=== PATIENT | female | born 1980 | race American Indian/Alaskan Native ===

== ENCOUNTER 2017-12-03 21:20 | Emergency (ER) | payer MEDICAID ==
[2017-12-03] MEDS ORDERED: APRESOLINE PO ONE (22:17)
--- NOTE | 2017-12-03 23:14 | XRay Report ---
FINAL REPORT EXAM: XR ANKLE 3+V RT HISTORY: pain and redness to R ankle TECHNIQUE: Frontal, lateral, mortise views right ankle Comparison: None FINDINGS: There is no evidence of fracture or subluxation. The mortise joint is maintained. There is soft tissue swelling at the level of the ankle. There appears to be ossification of the interosseous ligament in the region of the midshaft of the tibia. IMPRESSION: 1. No evidence of fracture or subluxation. 2. Soft tissue swelling at the level of the ankle.
[2017-12-03] MEDS ORDERED: NORCO 5/325 ONE (23:27)
[2017-12-03] MEDS ORDERED: NORCO 5/325 PO ONE (23:28)
--- NOTE | 2017-12-04 00:17 | Emergency Department Report ---
ED Extremity Problem HPI - General Chief complaint: Extremity Problem,Nontraumatic Stated complaint: RT ANKLE PAIN Time Seen by Provider: 12/04/17 00:07 Source: patient Mode of arrival: Ambulatory Limitations: No Limitations - History of Present Illness Initial comments: 37-year-old -French female presents to the emergency room for pain and redness to the left ankle. Patient denies any recent injury. She reports that every step that she takes hurts really bad. She also reports that it feels like it's burning to her left ankle. Patient is noted to have elevated blood pressure in triage of 173/114. Patient does admit to having intermittent headaches. She reports she has not taken any antihypertensive medicine this year. Patient is allergic to faustino inhibitors. She reports that the nifedipine made her feel worse. Therefore she is not taking any medications at this time. Patient did report taking Tylenol intermittently for pain. MD Complaint: extremity pain, extremity swelling -: days(s) (5) Location: left, lower extremity (ankle) -: Yes arthralgia Severity scale (0 -10): 4 Quality: burning, constant Improves with: cold therapy, rest Worsens with: weight bearing, walking - Related Data Previous Rx's Medication Instructions Recorded Last Taken Type Ciprofloxacin HCl [Ciprofloxacin 500 mg PO Q12HR #6 tab 12/08/16 Unknown Rx TAB] NIFEdipine XL [Procardia Xl] 90 mg PO QDAY #30 tablet 12/08/16 Unknown Rx Hydralazine HCl 50 mg PO BID #60 tablet 12/04/17 Unknown Rx Ibuprofen [Motrin 600 MG tab] 600 mg PO Q8H PRN #15 tablet 12/04/17 Unknown Rx hydroCHLOROthiazide [HCTZ] 25 mg PO QDAY #30 tablet 12/04/17 Unknown Rx Allergies Allergy/AdvReac Type Severity Reaction Status Date / Time lisinopril Allergy Swelling Verified 12/05/16 17:59 ED Review of Systems ROS: Stated complaint: RT ANKLE PAIN Other details as noted in HPI Constitutional: denies: chills, fever Eyes: denies: eye pain, eye discharge, vision change ENT: denies: ear pain, throat pain Respiratory: denies: cough, shortness of breath, wheezing Cardiovascular: denies: chest pain, palpitations Endocrine: no symptoms reported Gastrointestinal: denies: abdominal pain, nausea, diarrhea Genitourinary: denies: urgency, dysuria, discharge Musculoskeletal: joint swelling, arthralgia Skin: denies: rash, lesions Neurological: headache Psychiatric: denies: anxiety, depression Hematological/Lymphatic: denies: easy bleeding, easy bruising ED Past Medical Hx - Past Medical History Previous Medical History?: Yes Hx Hypertension: Yes Hx Congestive Heart Failure: No Hx Diabetes: No Hx Asthma: No Hx COPD: No Additional medical history: obesity - Surgical History Past Surgical History?: Yes Additional Surgical History: - Social History Smoking Status: Never Smoker Substance Use Type: None - Medications Home Medications: Home Medications Medication Instructions Recorded Confirmed Last Taken Type Ciprofloxacin HCl [Ciprofloxacin 500 mg PO Q12HR #6 tab 12/08/16 Unknown Rx TAB] NIFEdipine XL [Procardia Xl] 90 mg PO QDAY #30 tablet 12/08/16 Unknown Rx Hydralazine HCl 50 mg PO BID #60 tablet 12/04/17 Unknown Rx Ibuprofen [Motrin 600 MG tab] 600 mg PO Q8H PRN #15 tablet 12/04/17 Unknown Rx hydroCHLOROthiazide [HCTZ] 25 mg PO QDAY #30 tablet 12/04/17 Unknown Rx ED Physical Exam - General Limitations: No Limitations General appearance: alert, in no apparent distress - Head Head exam: Present: atraumatic, normocephalic - Eye Eye exam: Present: EOMI - ENT ENT exam: Present: mucous membranes moist - Neck Neck exam: Present: full ROM - Respiratory Respiratory exam: Present: normal lung sounds bilaterally. Absent: respiratory distress - Cardiovascular Cardiovascular Exam: Present: regular rate, normal rhythm. Absent: systolic murmur, diastolic murmur, rubs, gallop - Expanded Lower Extremity Exam Left Hip exam: Present: full ROM Upper Leg exam: Present: normal inspection Knee exam: Present: normal inspection Ankle exam: Present: full ROM, tenderness, swelling. Absent: abrasion, ecchymosis, deformity, erythema Foot/Toe exam: Present: full ROM. Absent: tenderness (tibialis anterior ligament tenderness), swelling Neuro vascular tendon exam: Present: no vascular compromise - Neurological Exam Neurological exam: Present: alert, oriented X3 - Psychiatric Psychiatric exam: Present: normal affect, normal mood - Skin Skin exam: Present: warm, dry, intact, normal color. Absent: rash ED Course Vital Signs 12/03/17 12/03/17 12/03/17 21:42 22:09 22:38 Temperature 98.5 F 98.5 F Pulse Rate 85 88 88 Respiratory 16 16 Rate Blood Pressure 173/114 173/114 173/114 Blood Pressure [Left] Blood Pressure [Right] O2 Sat by Pulse 100 100 Oximetry 12/03/17 12/04/17 12/04/17 23:29 01:19 02:40 Temperature Pulse Rate 74 77 75 Respiratory 17 17 17 Rate Blood Pressure Blood Pressure 169/103 165/103 [Left] Blood Pressure 164/112 [Right] O2 Sat by Pulse 100 99 100 Oximetry ED Medical Decision Making - Radiology Data Radiology results: report reviewed, image reviewed FINAL REPORT EXAM: XR ANKLE 3+V RT HISTORY: pain and redness to R ankle TECHNIQUE: Frontal, lateral, mortise views right ankle Comparison: None FINDINGS: There is no evidence of fracture or subluxation. The mortise joint is maintained. There is soft tissue swelling at the level of the ankle. There appears to be ossification of the interosseous ligament in the region of the midshaft of the tibia. IMPRESSION: 1. No evidence of fracture or subluxation. 2. Soft tissue swelling at the level of the ankle. Transcribed By: ED Dictated By: PARMJIT ELLIS MD Electronically Authenticated By: PARMJIT ELLIS MD Signed Date/Time: 12/03/17 3714 - Medical Decision Making Patient has been evaluated by this provider fast track. Patient has been given Erwin as well as ibuprofen 800 mg for pain management. Patient has been given hydralazine 50 mg by mouth for hypertension. Patient has had a Faustino wrap and left ankle stirrup for pain instability. Referral for patient to follow up in orthopedics clinic. Referral for [facility] for primary care for management of hypertension. Patient will be discharged on hydralazine 50 mg twice a day in hydrochlorothiazide 25 mg daily. Patient blood pressure continued to be elevated patient was given IV labetalol 10 mg. Blood pressure was rechecked which had not moved with decreased at all. Patient was then given another labetalol 20 mg IV as well as nitroglycerin 0.4 mg sublingual. Blood pressure remains the same. Patient is still asymptomatic. We'll discharge patient on hydralazine 50 mg twice a day hydrochlorothiazide 25 mg daily and referral to [facility]. Critical care attestation.: If time is entered above; I have spent that time in minutes in the direct care of this critically ill patient, excluding procedure time. ED Disposition Clinical Impression: Uncontrolled hypertension Ankle sprain Qualifiers: Encounter type: initial encounter Involved ligament of ankle: anterior talofibular ligament Laterality: left Qualified Code(s): S93.492A - Sprain of other ligament of left ankle, initial encounter Disposition: TO HOME OR SELFCARE Is pt being admited?: No Does the pt Need Aspirin: No Condition: Stable Instructions: Hypertension (ED) Additional Instructions: Please take blood pressure medication as prescribed. Pain medication as needed. He is very important for you to follow-up with [facility] for chronic hypertension that is uncontrolled. As this can increase her chances of coming down with a stroke or heart attack. If his symptoms persist or gets worse please follow up with orthopedic. I have also listed [facility] information. Prescriptions: Hydralazine HCl 50 mg PO BID #60 tablet hydroCHLOROthiazide [HCTZ] 25 mg PO QDAY #30 tablet Ibuprofen [Motrin 600 MG tab] 600 mg PO Q8H PRN #15 tablet PRN Reason: Pain Referrals: PRIMARY MD KEISHA [Primary Care Provider] - 3-5 Days ELVIRA GUILLEN MD [Staff Physician] - 3-5 Days [facility] [Provider Group] - 3-5 Days Forms: Work/School Release Form(ED)
[2017-12-04] MEDS ORDERED: MOTRIN ONE (00:24)
[2017-12-04] MEDS ORDERED: MOTRIN PO ONE (00:25)
[2017-12-04] MEDS ORDERED: NORMODYNE IV ONE ×2 (01:22→03:07)
[2017-12-04] MEDS ORDERED: NITROSTAT SL ONE (03:07)
[2017-12-04 04:30] VITALS: BP 175/103
== END 2017-12-04 04:24 | disposition home or self-care (01) ==
LOC: ED 21:20
DX: S93.492A Sprain of other ligament of left ankle, initial encounter (principal); I10 Essential (primary) hypertension; Z88.8 Allergy status to other drugs, medicaments and biological substances; X58.XXXA Exposure to other specified factors, initial encounter; Y93.89 Activity, other specified; Y92.89 Other specified places as the place of occurrence of the external cause; Y99.8 Other external cause status
CPT/HCPCS: 96374; 96376

== ENCOUNTER 2019-04-20 15:38 | Emergency (ER) | payer MEDICAID ==
--- NOTE | 2019-04-20 17:21 | Emergency Department Report ---
Blank Doc - Documentation Documentation: 38 Y/O FEMALE PRESENTS C/O 2 WEEK H/O UPPER ABDOMINAL PAIN ASSOCIATED WITH NA USEA AND VOMITING. NO DIARRHEA. NO TRAVEL. ALSO HAS THROBBING HEADACHE FOR THE LAST 1-2 WEEKS TOO. BP 195/123 DURING SCREENING. The patient was seen in triage for ABOVE Labs/imaging ordered to evaluate for a cause of this complaint. Vital signs reviewed, patient awake and alert in NAD.
[2019-04-20 18:17] LABS: Hematocrit 40.3 % (30.3-42.9); Hemoglobin 13.4 gm/dl (10.1-14.3); Mean Corpuscular HGB Conc 33 % (30-34); Mean Corpuscular Volume 87 fl (79-97); Platelet Count 391 K/mm3 (140-440); Red Blood Count 4.61 M/mm3 (3.65-5.03); Red Cell Distribution Width 15.8 % (13.2-15.2)
[2019-04-20 18:19] LABS: Eosinophils % (Auto) 1.1 % (0.0-4.3); Lymphocytes % (Auto) 32.3 % (13.4-35.0); Monocytes % (Auto) 8.8 % (0.0-7.3)
[2019-04-20 18:20] LABS: Basophils # (Auto) 0.1 K/mm3 (0.0-0.1); Eosinophils # (Auto) 0.1 K/mm3 (0.0-0.4); Lymphocytes # (Auto) 1.7 K/mm3 (1.2-5.4); Monocytes # (Auto) 0.5 K/mm3 (0.0-0.8)
[2019-04-20 18:29] LABS: Alanine Aminotransferase 9 units/L (7-56); Albumin 3.9 g/dL (3.9-5); BUN/Creatinine Ratio 15; Blood Urea Nitrogen 12 mg/dL (7-17); Hemolysis Index 13
[2019-04-20 18:42] LABS: Bilirubin,Direct < 0.2 mg/dL (0-0.2)
[2019-04-20] MEDS ORDERED: ACETAMINOPHEN 325 MG TAB PO ONE (18:42)
--- NOTE | 2019-04-20 18:52 | Emergency Department Report ---
HPI - General Chief Complaint: Abdominal Pain Time Seen by Provider: 04/20/19 18:19 - HPI HPI: 38-year-old -Greek female presents to the emergency department with a complaint of upper abdominal pain, nausea, vomiting, left-sided headache and unc ontrolled blood pressure. Overall the abdominal pain has been going on for the past 2 weeks but normally it occurs after the patient eats something. Today she woke up with the pain and it seems to worsen when she ambulates. She woke up with this headache as well. It is left-sided, throbbing, 8 out of 10 in intensity. She denies any vision change, slurred speech or any other neurological deficits. She has not taken anything today for her symptoms prior to arrival. She does have a history of hypertension but has been out of her medications for the past 6 months. She is an occasional tobacco smoker and denies any illicit drug use. She has a primary care physician but cannot remember the name and has not seen them" in a while." No recent travel or sick contacts at home. ED Past Medical Hx - Past Medical History Hx Hypertension: Yes Hx Congestive Heart Failure: No Hx Diabetes: No Hx Asthma: No Hx COPD: No Additional medical history: obesity - Surgical History Past Surgical History?: Yes Additional Surgical History: - Social History Smoking Status: Never Smoker Substance Use Type: None - Medications Home Medications: Home Medications Medication Instructions Recorded Confirmed Last Taken Type Ciprofloxacin HCl [Ciprofloxacin 500 mg PO Q12HR #6 tab 12/08/16 Unknown Rx TAB] NIFEdipine XL [Procardia Xl] 90 mg PO QDAY #30 tablet 12/08/16 Unknown Rx Hydralazine HCl 50 mg PO BID #60 tablet 12/04/17 Unknown Rx Ibuprofen [Motrin 600 MG tab] 600 mg PO Q8H PRN #15 tablet 12/04/17 Unknown Rx hydroCHLOROthiazide [HCTZ] 25 mg PO QDAY #30 tablet 12/04/17 Unknown Rx Ondansetron [Zofran Odt] 4 mg PO Q8HR PRN #15 tab.rapdis 04/21/19 Unknown Rx amLODIPine 10 mg PO DAILY #30 tab 04/21/19 Unknown Rx ED Review of Systems ROS: Stated complaint: STOMACH PAIN/HEAD PAIN Other details as noted in HPI Comment: All other systems reviewed and negative Constitutional: denies: chills, fever Eyes: denies: eye pain, vision change ENT: denies: ear pain, throat pain Respiratory: denies: cough, shortness of breath Cardiovascular: denies: chest pain, palpitations Gastrointestinal: abdominal pain, nausea, vomiting Genitourinary: denies: dysuria, discharge Musculoskeletal: denies: back pain, arthralgia Skin: denies: rash, lesions Neurological: headache. denies: weakness, numbness, paresthesias Physical Exam - Physical Exam Vital Signs: Vital Signs 04/20/19 04/20/19 16:12 17:20 Temperature 98.6 F Pulse Rate 87 Respiratory 18 Rate Blood Pressure 204/137 Blood Pressure 195/123 [Right] O2 Sat by Pulse 100 Oximetry Physical Exam: GENERAL: The patient is well-developed well-nourished. HEENT: Normocephalic. Atraumatic. Patient has moist mucous membranes. EYES: Extraocular motions are intact. Pupils equal and reactive to light bilaterally. No nystagmus. NECK: Supple. Trachea is midline CHEST/LUNGS: Clear to auscultation. There is no respiratory distress noted. HEART/CARDIOVASCULAR: Regular. There is no tachycardia. ABDOMEN: Abdomen is soft. There is some right upper quadrant and epigastric tenderness to palpation. patient has normal bowel sounds. Obese habitus. SKIN: Skin is warm and dry. NEURO: The patient is awake, alert, and oriented. The patient is cooperative. The patient has no focal neurologic deficits. Normal speech. Cranial nerves II through XII grossly intact. MUSCULOSKELETAL: There is no tenderness or deformity. There is no limitation range of motion. There is no evidence of acute injury. ED Course Vital Signs 04/20/19 04/20/19 16:12 17:20 Temperature 98.6 F Pulse Rate 87 Respiratory 18 Rate Blood Pressure 204/137 Blood Pressure 195/123 [Right] O2 Sat by Pulse 100 Oximetry ED Medical Decision Making - Lab Data Result diagrams: 04/20/19 17:36 04/20/19 17:36 - Radiology Data Radiology results: report reviewed, image reviewed interpreted by me: Abdominal x-ray shows nonspecific nonobstructive bowel gas CT head/brain wo con INDICATION / CLINICAL INFORMATION: 38 years Female; headache. TECHNIQUE: Routine CT head without contrast. All CT scans at this location are performed using CT dose reduction for ALARA by means of automated exposure control. COMPARISON: None. FINDINGS: BRAIN / INTRACRANIAL CONTENTS: No acute hemorrhage, mass effect, midline shift, hydrocephalus, or acute, large territorial infarct. No chronic infarct or atrophy appreciated. No significant white matter abnormality. CRANIOCERVICAL JUNCTION: No significant abnormality. ORBITS: No significant abnormality of visualized orbits. SINUSES / MASTOIDS: No significant abnormality the visualized paranasal sinuses or mastoid air cells. ADDITIONAL FINDINGS: None. IMPRESSION: 1. No focal mass, hemorrhage, hydrocephalus, or acute, large territorial infarct. ULTRASOUND ABDOMEN, LIMITED (RIGHT UPPER QUADRANT), 04/20/2019 INDICATION: Right upper quadrant pain. COMPARISON: No prior abdominal imaging is available for comparison FINDINGS: Pancreas: Visualized portion shows no significant abnormality. Liver: The liver appears normal in size and echogenicity. Gallbladder: The gallbladder contains a single large calcified gallstone estimated to measure 3.5 cm. There is no evidence of gallbladder wall thickening. Bile ducts: Common Bile Duct is not well-visualized. Free fluid: None. Additional Findings: None. IMPRESSION: 1. Single large calcified gallstone. No sonographic evidence to suggest cholecystitis. - Medical Decision Making This patient presents to the emergency department with a complaint of acute on chronic abdominal pain with some nausea and vomiting, a new left-sided headache, and uncontrolled blood pressure. She does have a history of hypertension but has not been on any medication for the past 6 months. On examination she is not having any focal, motor or sensory deficits in her cranial nerves are intact. She has epigastric and right upper quadrant abdominal tenderness to palpation but there is no guarding, no abdominal distention and the abdomen is soft and nontoxic in appearance. The patient was given some hydralazine and labetalol and eventually her blood pressure came down to a much more reasonable level. A CT scan of the head without contrast was completed that did not show any bleed, shift, mass, ischemia, or any other acute process. Abdominal ultrasound shows cholelithiasis without cholecystitis. Labs have been mostly unremarkable. Patient was given some Zofran for her nausea and a dose of pain medication. Upon reevaluation she is feeling greatly improved. Able to pass an oral chal lenge. She appears safe for discharge home at this time. She will be given a referral for primary care and general surgery. She'll be started on amlodipine for blood pressure. She will return to the ER with any worsening of her symptoms or any acute distress. - Differential Diagnosis cholelithiasis, cholecystitis, pancreatitis, tension headache, subarachnoid Critical Care Time: No Critical care attestation.: If time is entered above; I have spent that time in minutes in the direct care of this critically ill patient, excluding procedure time. ED Disposition Clinical Impression: Hypertension Qualifiers: Hypertension type: essential hypertension Qualified Code(s): I10 - Essential (primary) hypertension Cholelithiasis Qualifiers: Cholelithiasis location: gallbladder Cholecystitis presence: without cholecystitis Biliary obstruction: without biliary obstruction Qualified Code(s): K80.20 - Calculus of gallbladder without cholecystitis without obstruction Abdominal pain Qualifiers: Abdominal location: upper abdomen, unspecified Qualified Code(s): R10.10 - Upper abdominal pain, unspecified Nausea & vomiting Qualifiers: Vomiting type: unspecified Vomiting Intractability: non-intractable Qualified Code(s): R11.2 - Nausea with vomiting, unspecified Disposition: - TO HOME OR SELFCARE Is pt being admited?: No Condition: Stable Instructions: Biliary Colic (ED), Acute Nausea and Vomiting (ED), Abdominal P ain (ED), Hypertension (ED) Additional Instructions: Please follow up with a primary care physician in the next few days. I am also giving you a referral for a local general surgeon, Dr. Mchugh, to follow up regarding your gallstones. Return to the emergency Department with any worsening of your symptoms or any acute distress. I'm starting him on a blood pressure medication called amlodipine/Norvasc. This medication is taken 1 time per day, usually in the morning. Try and stay away from foods that are high in salt and caffeinated products. Keep a blood pressure log. Prescriptions: amLODIPine 10 mg PO DAILY #30 tab Ondansetron [Zofran Odt] 4 mg PO Q8HR PRN #15 tab.rapdis PRN Reason: Nausea Referrals: PRIMARY CARE, [Primary Care Provider] - 3-5 Days GARCÍA SUAREZ MD [Staff Physician] - 3-5 Days DIONE MCHUGH DO [Staff Physician] - 3-[address] [facility] [Outside] - 3-5 Days Time of Disposition: 00:02
[2019-04-20] MEDS ORDERED: hydrALAZINE 20 MG/1 ML INJ IV ONE ×2 (19:56→21:42)
[2019-04-20] MEDS ORDERED: ONDANSETRON 4 MG/2 ML INJ IV ONE (20:09)
--- NOTE | 2019-04-20 21:12 | XRay Report ---
ABDOMEN 2 VIEW(S) INDICATION / CLINICAL INFORMATION: abd pain. COMPARISON: None available. FINDINGS: TUBES / LINES: None. BOWEL GAS PATTERN: No significant abnormality. FREE AIR / EXTRALUMINAL GAS: None seen. ADDITIONAL FINDINGS: No significant additional findings. IMPRESSION: 1. No significant abnormality. Signer Name: Jensen Madsen MD Signed: 04/20/2019 9:08 PM Workstation Name: [id number]
--- NOTE | 2019-04-20 21:22 | Cat Scan Report ---
CT head/brain wo con INDICATION / CLINICAL INFORMATION: 38 years Female; headache. TECHNIQUE: Routine CT head without contrast. All CT scans at this location are performed using CT dos e reduction for ALARA by means of automated exposure control. COMPARISON: None. FINDINGS: BRAIN / INTRACRANIAL CONTENTS: No acute hemorrhage, mass effect, midline shift, hydrocephalus, or acu te, large territorial infarct. No chronic infarct or atrophy appreciated. No significant white matter abnormality. CRANIOCERVICAL JUNCTION: No significant abnormality. ORBITS: No significant abnormality of visualized orbits. SINUSES / MASTOIDS: No significant abnormality the visualized paranasal sinuses or mastoid air cells. ADDITIONAL FINDINGS: None. IMPRESSION: 1. No focal mass, hemorrhage, hydrocephalus, or acute, large territorial infarct. Signer Name: Wan Balderas MD, III Signed: 04/20/2019 9:18 PM Workstation Name: [id number]
[2019-04-20] MEDS ORDERED: MORPHINE 4 MG/1 ML INJ IV ONE (21:50)
[2019-04-20] MEDS ORDERED: MORPHINE 2 MG/1 ML INJ ONE (21:52)
--- NOTE | 2019-04-20 23:32 | Ultrasound Report ---
ULTRASOUND ABDOMEN, LIMITED (RIGHT UPPER QUADRANT), 04/20/2019 INDICATION: Right upper quadrant pain. COMPARISON: No prior abdominal imaging is available for comparison FINDINGS: Pancreas: Visualized portion shows no significant abnormality. Liver: The liver appears normal in size and echogenicity. Gallbladder: The gallbladder contains a single large calcified gallstone estimated to measure 3.5 cm. There is no evidence of gallbladder wall thickening. Bile ducts: Common Bile Duct is not well-visualized. Free fluid: None. Additional Findings: None. IMPRESSION: 1. Single large calcified gallstone. No sonographic evidence to suggest cholecystitis. Signer Name: Faye Up MD Signed: 04/20/2019 11:27 PM Workstation Name: [id number]
[2019-04-21] VITALS: BP 169/90
== END 2019-04-21 00:21 | disposition home or self-care (01) ==
LOC: ED 15:38
DX: K80.20 Calculus of gallbladder without cholecystitis without obstruction (principal); I10 Essential (primary) hypertension; Z79.899 Other long term (current) drug therapy
CPT/HCPCS: 36415; 70450; 74019; 76705; 80048; 80076; 83690; 84703; 85025; 96374; 96375; 96376; 99285; J0360; J2270; J2405